=== PATIENT | male | born 1985 | race African-American/Black ===

== ENCOUNTER 2018-10-14 14:42 | Emergency (ER) | payer OTHER ==
[~2018-10-14] VITALS: Ht 177.8 cm; Wt 90.7 kg
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
[2018-10-14] MEDS ORDERED: KETOROLAC TROMETHAMINE INJ 30 MG/ML VIAL IM ONE (15:30)
[2018-10-14] MEDS ORDERED: KETOROLAC TROMETHAMINE 15 MG/ML VIAL ONE (15:33)
[2018-10-14 16:13] VITALS: BP 138/78
== END 2018-10-14 15:50 | disposition home or self-care (01) ==
LOC: ER 14:49
DX: M54.6 Pain in thoracic spine (principal); I10 Essential (primary) hypertension; Z60.2 Problems related to living alone; V49.49XA Driver injured in collision with other motor vehicles in traffic accident, initial encounter; Y93.89 Activity, other specified; Y92.413 State road as the place of occurrence of the external cause; Y99.8 Other external cause status
CPT/HCPCS: 96372; 99283; J1885